=== PATIENT | female | born 1960 | race Caucasian/White ===

== ENCOUNTER 2019-01-06 12:59 | Emergency (ER) | payer MEDICAID ==
[2019-01-06 13:38] VITALS: BP 142/65; PULSE 94
[2019-01-06] MEDS ORDERED: Ketorolac 60 MG/2 ML SDV ONE (14:21)
[2019-01-06] MEDS ORDERED: Ketorolac 60 MG/2 ML SDV IM ONE (14:26)
[2019-01-06] MEDS ORDERED: Cyclobenzaprine 10 MG Tab ONE (15:40)
--- NOTE | 2019-01-08 07:45 | ER ---
DATE OF SERVICE: 01/06/2019 REASON FOR EMERGENCY ROOM VISIT: Low back pain. HISTORY: This 58-year-old woman comes in after awakening this morning with low back pain that is located to the right of the midline. This she noticed shortly after awakening this morning. She has only had a few mild episodes of low back pain on occasion in the past, but none of which required a visit to her physician or emergency room. She took 1 tablet of Aleve this morning. She does work at a resort, and she is fairly active, but she has not done any unusual straining or working lately. She denies any weakness, numbness, or tingling in her lower extremities and the pain is localized to the right side of her low to mid back area. She did have some nausea this morning, which she is confident is secondary to pain. She has not had any vomiting. She has not had any lower GI symptoms or urinary symptoms, including dysuria. She has not had any hematuria. The pain that she describes is a dull, constant ache that is increased with any kind of movement. MEDICATIONS: 1. She takes a cholesterol-lowering medication. 2. Prozac. ALLERGIES: NONE TO MEDICATIONS. PAST MEDICAL HISTORY: Unremarkable. 3, para 3. SOCIAL HISTORY: She is a smoker, but denies any alcohol use. REVIEW OF SYSTEMS: Pertinent positives and negatives as listed in the HPI. PHYSICAL EXAMINATION: GENERAL: Reveals a young, pleasant woman, in no acute distress. VITAL SIGNS: See EMR. HEENT: Head is normocephalic. No scleral icterus. Oral hydration appears normal. NECK: No adenopathy. Supple with no tenderness. CHEST: Clear to auscultation. CARDIAC: Regular rate without murmur. ABDOMEN: Nondistended. Bowel sounds are present. Soft, nontender with no guarding, rebound, or percussion tenderness. She has no hepatosplenomegaly or palpable masses. EXTREMITIES: Normal pulses. No edema. Good color. BACK: She does have some paraspinal spasm on the right side that is detectable on my examination. She does not have any percussion tenderness in the midline. She does have some tenderness right over the sacroiliac joint on the right side to palpation and this reproduces the discomfort that she has been experiencing. Straight leg raising is negative. Deep tendon reflexes are symmetrical. Muscle strength, bulk, and tone are normal and symmetrical bilaterally in both lower extremities. Sensation is normal to crude touch. LABORATORY DATA: A CBC was obtained, was normal. She did have a urinalysis which was normal except for some ketones, presumably because she has not eaten since yesterday. There is no glycosuria or hematuria. IMPRESSION: Low back strain/lumbosacral strain. PLAN: The patient and her daughter seem to perseverate on the possibility of a kidney stone. She states that she has had a backache in the past, but nothing like this and this seems quite a bit different. I eventually agreed to perform a CAT scan, but I thought that this would probably come up negative. Prior to doing this, I went ahead and got the UA and CBC as outlined above. Her CT scan did show that she had a 4 mm nonobstructing calculus in the right kidney, but nothing in the ureter, and there was no hydroureter or any other evidence of stones. She also had what appeared to be some enlarged lymph nodes in the right pericolic area, significance of which could not be determined. Her appendix did not appear to be inflamed. Plan: I reviewed the CT findings and told them to inform the patient of the stone, as well as the findings of the lymph nodes. For this reason, she should follow up with her provider, but I feel comfortable and confident that what her pain has been is mainly musculoskeletal. I illustrated to her some specific stretching exercises and recommended that she take high-dose ibuprofen 800 mg p.o. q.8 hours with food and to resume as much normal activity as possible. She probably should stay away from work for a couple of days, but I told her to try to ambulate and be active at home and move about and not to lie in bed or baby her back. She can go ahead and try ice or heat, depending on which offers her some relief, and she understands this. All questions were answered. They agree with this plan. The importance of following up with her physician was stressed to her, and she assures me she will do this. JOSH /[id number]
--- NOTE | 2019-01-09 07:26 | CT ---
Date of Service: 01/06/2019 Clinical Data: Lower back pain. UNENHANCED ABDOMEN AND PELVIC CT: Multislice acquisition through the abdomen and pelvis without IV or oral contrast was performed. No priors. The lung bases are clear. The heart size is normal. The unenhanced liver appears normal. No focal hepatic lesions. The gallbladder appears normal. No calcified gallstones. The spleen appears normal. The pancreas appears normal. The right and left adrenals appear normal. There is a 4 mm nonobstructing renal calculi in the mid pole of right kidney. The right and left kidneys otherwise appear normal. No hydronephrosis or hydroureter. No evidence of ureterolithiasis. The bladder is partially fluid filled. It appears grossly normal. There is an IUD noted within the uterus. The appendix is mildly dilated measuring 7 mm in outside diameter. No periappendiceal fat stranding or fluid. Early appendicitis cannot be excluded. There is diffuse gastric wall thickening. This is most likely related to nondistention. Gastritis should be considered. There are multiple lymph nodes medial to the cecum. They are not pathologically enlarged. No adenopathy. No free air. No free fluid. No dilated loops of bowel. No aortic aneurysm. There is a small umbilical hernia containing fat. IMPRESSION: Slightly dilated appendix as discussed above. No periappendiceal fat stranding or fluid. Early appendicitis cannot be excluded. Other findings as discussed above. The patient's physician was notified of the finding by [facility] preliminary radiology report. [id number] [facility]
== END 2019-01-06 16:00 | disposition home or self-care (01) ==
LOC: LB.ED 12:59
DX: S39.012A Strain of muscle, fascia and tendon of lower back, initial encounter (principal); Z79.899 Other long term (current) drug therapy; X58.XXXA Exposure to other specified factors, initial encounter
CPT/HCPCS: 36415; 74176; 81003; 85025; 96372; 99284; A9270; J1885

== ENCOUNTER 2022-09-05 11:06 | Emergency (ER) | payer MEDICAID ==
[2022-09-05 11:17] VITALS: BP 131/80; PULSE 105
[2022-09-05] MEDS ORDERED: valACYclovir 1,000 MG Tab ONE (11:45)
[2022-09-05] MEDS ORDERED: Hydrocortisone Acetate 1% Crm 30 GM Tube ONE (11:45)
== END 2022-09-05 12:00 | disposition home or self-care (01) ==
LOC: LB.ED 11:06
DX: B02.9 Zoster without complications (principal)
CPT/HCPCS: 99282; A9270-GY